=== PATIENT | female | born 1985 | race Caucasian/White ===

== ENCOUNTER 2016-12-04 20:54 | Emergency (ER) | payer OTHER ==
[~2016-12-04] VITALS: Ht 61 cm; Wt 59.1 kg
[~2016-12-04 20:54] MED LIST: BIRTH CONTROL; FLEXERIL 1010 MG/TAB PO; LUPRON DEPOT11.25 M2; MOTRIN 800800 MG/TAB PO; NORCO 325 MG-51 TAB PO; NORETHINDRONE AC5 MG PO; PERCOCET 325 MG1 TA2 PO; PROMETRIUM200 M1 PO; PROVERA5 MG; PROZAC 10MG10 MG PO; TYLENOL 500MG500 MG PO; ULTRAM 50MG TAB50 MG PO; ZOFRAN ODT4 MG PO
[2016-12-04 21:22] VITALS: BP 106/62; TEMP 98.9
[2016-12-05 00:28] VITALS: PULSE 100
== END 2016-12-05 00:29 | disposition home or self-care (01) ==
LOC: COL.ER 20:54
DX: S16.1XXA Strain of muscle, fascia and tendon at neck level, initial encounter (principal); Z90.710 Acquired absence of both cervix and uterus; Z98.890 Other specified postprocedural states; Y04.0XXA Assault by unarmed brawl or fight, initial encounter
CPT/HCPCS: J1885